=== PATIENT | female | born 1995 | race Caucasian/White ===

== ENCOUNTER 2021-12-28 23:40 | Emergency (ER) | payer SELFPAY ==
[~2021-12-28] VITALS: Ht 167.6 cm; Wt 89.4 kg
[2021-12-29 01:36] LABS: CLARITY URINE CLOUDY (CLEAR); COLOR URINE YELLOW (YELLOW); KETONES URINE TRACE (NEGATIVE); LEUKOCYTE ESTERASE URINE TRACE (NEGATIVE); NITRITE URINE NEGATIVE (NEGATIVE); OCCULT BLOOD URINE NEGATIVE (NEGATIVE); PROTEIN URINE 1+ (NEGATIVE); SPECIFIC GRAVITY URINE 1.026 (1.005-1.030)
[2021-12-29 01:57] LABS: BASOPHILS % 0.8 % (0.0-2.0); EOSINOPHILS % 0.8 % (0.0-5.0); HEMATOCRIT. 33.4 % (36.0-48.0); HEMOGLOBIN. 10.4 g/dL (12.0-16.0); LYMPHOCYTES % 21.8 % (20.0-50.0); MEAN CORPUSCULAR HEMOGLOBIN 21.6 pg (28.0-32.0); MEAN CORPUSCULAR VOLUME 69.5 fL (81.0-99.0); MEAN PLATELET VOLUME 8.8 fl (7.4-10.4); MONOCYTES % 8.2 % (2.0-8.0); NEUTROPHILS % 68.4 % (40.0-76.0); PLATELET 305 x1000/uL (130-400); RED BLOOD CELL COUNT 4.81 mill/uL (4.2-5.4); RED CELL DISTRIBUTION WIDTH 17.8 % (11.6-14.6)
[2021-12-29 02:04] LABS: CHLORIDE 107 mEq/L (98-107)
[2021-12-29] MEDS ORDERED: FERR-71 MT (03:41)
[2021-12-29] MEDS ORDERED: METR-167 MT (03:41)
[2021-12-29] MEDS ORDERED: PANT20TA17 MT (03:48)
[2021-12-29] MEDS ORDERED: NITR-87 MT (03:48)
[2021-12-29 03:50] VITALS: BP 108/55
[2021-12-29 05:00] LABS: PLATELET ESTIMATE NORMAL
== END 2021-12-29 04:22 | disposition home or self-care (01) ==
LOC: ER 23:40
DX: N76.0 Acute vaginitis (principal); D50.9 Iron deficiency anemia, unspecified; Z87.440 Personal history of urinary (tract) infections; Z88.8 Allergy status to other drugs, medicaments and biological substances
CPT/HCPCS: 36415; 76830; 76856; 80053; 81003; 81025; 85025; 99284

== ENCOUNTER 2022-10-31 22:13 | Emergency (ER) | payer MEDICAID ==
[~2022-10-31] VITALS: Ht 167.6 cm; Wt 84.0 kg
[~2022-10-31 22:13] MED LIST: BO1 TP; CEPH500C2 MT; FERR-71 MT; METR-167 MT; NITR-87 MT; PANT20TA17 MT
[2022-10-31 23:26] VITALS: BP 110/42; PULSE 81; RESP 16; TEMP 98.7; O2SAT 99
[2022-11-01] MEDS ORDERED: NAPR-681 PO (01:45)
[2022-11-01] MEDS ORDERED: BO1 TP (01:45)
[2022-11-01] MEDS ORDERED: DOXY100T28 MT (01:45)
== END 2022-11-01 07:25 | disposition home or self-care (01) ==
LOC: ER 22:13
DX: L03.114 Cellulitis of left upper limb (principal); F41.9 Anxiety disorder, unspecified
CPT/HCPCS: 99283

== ENCOUNTER 2022-12-19 20:34 | Emergency (ER) | payer MEDICAID ==
[~2022-12-19] VITALS: Ht 167.6 cm; Wt 81.0 kg
[~2022-12-19 20:34] MED LIST changes: +DOXY100T28 MT; +NAPR-681 PO
[2022-12-19 20:40] VITALS: O2SAT 100
[2022-12-19 20:49] VITALS: BP 118/71; PULSE 94; RESP 14; TEMP 99.1
== END 2022-12-19 21:48 | disposition home or self-care (01) ==
LOC: ER 20:34
DX: J04.0 Acute laryngitis (principal); D64.9 Anemia, unspecified; F41.9 Anxiety disorder, unspecified; Z79.899 Other long term (current) drug therapy; Z20.822 Contact with and (suspected) exposure to COVID-19
CPT/HCPCS: 99283; 87426; 87430; 87070; C9803